=== PATIENT | male | born 1980 | race Caucasian/White ===

== ENCOUNTER 2021-05-07 09:46 | Emergency (ER) | payer MEDICAID, SELFPAY ==
[2021-05-07 09:52] VITALS: BP 173/102; PULSE 84; RESP 20; TEMP 36.9; O2SAT 94; BMI 57.4
--- NOTE | 2021-05-07 10:23 | ED.GENADULT ---
HPI - General Adult General Chief complaint: General Medical Stated complaint: R SIDE LOWER ABD PAIN WHEN COUGH Time Seen by Provider: 05/07/21 10:03 Source: patient Mode of arrival: ambulatory Limitations: no limitations History of Present Illness HPI narrative: 40-year-old male is here today for complaining of right lower quadrant pain. Patient reports that his pain is there when he coughs. He reports that the pain is stabbing. Patient denies pain at any other time. Patient reports that he is coughing because he is a smoker. Patient denies any nausea, vomiting, dyspepsia, dysphagia or odynophagia. Denies any diarrhea or constipation. Denies any fever or chills. Patient denies any other symptoms no CP, PND, SOB with or without exertion. Onset (ago): day(s) Location: abdomen Radiation: non-radiation Severity: mild Quality: stabbing Pain Consistency: intermittent Related Data Previous Rx's Medication Instructions Recorded cyclobenzaprine 10 mg tablet 10 mg PO BEDTIME PRN #10 tab 05/07/21 Allergies Allergy/AdvReac Type Severity Reaction Status Date / Time No Known Allergies [NKA] Allergy Unverified 05/18/20 14:59 Review of Systems Review of Systems: Constitutional : No Weight loss, No Fever, No Chills, No Night Sweats, No Fatigue, No Malaise ENT/Mouth : No Hearing loss, No Ear Pain, No Nasal Congestion, No Sinus Pain, No Hoarseness, No sore throat, No Rhinorrhea, No Swallowing Difficulty Eyes: No Eye Pain, No Swelling, No Redness, No Foreign Body, No Discharge, No Vision Changes Cardiovascular : No Chest Pain, No SOB, No Dyspnea on Exertion, No Orthopnea, No Edema, No Palpitations Respiratory : No Cough, No Sputum, No Wheezing, No Smoke Exposure, No Dyspnea Gastrointestinal : No Nausea, No Vomiting, No Diarrhea, No Constipation, abdominal Pain RLQ, No Hematochezia, No Melena Genitourinary : no irregular bleeding, No Dysuria, No Urinary Frequency, No Hematuria, No Urinary Incontinence, No Urgency, No Flank Pain, No Urinary Flow Changes, No Hesitancy Musculoskeletal : No joint pain, No Myalgias, No Joint Swelling Skin : No Skin Lesions, No rash Neuro : No Weakness, No Numbness, No Paresthesias, No Loss of Consciousness, No Dizziness, No Headache Psych : No Anxiety/Panic, No Depression, No SI/HI/AH/VH, No Social Issues, Heme/Lymph: No Bruising, No Bleeding,No Lymphadenopathy Endocrine : No Polyuria, No Polydipsia, No Temperature Intolerance Yes all other systems are reviewed and are negative PMFSH Past Medical History Medical History (Updated 05/07/21 @ 13:42 by Marcelina Morrow, [facility]) Diabetes HTN (hypertension) Social History Social History Patient Tobacco Use Status: Never used Tobacco Advance Directives: No Advance Directives Information Provided: No Physical Exam Vital Signs: Vital Signs: Last Vital Signs Temp 98.5 F 05/07/21 09:52 Pulse 81 05/07/21 11:38 Resp 20 05/07/21 09:52 BP 183/114 H 05/07/21 11:38 Pulse Ox 95 05/07/21 11:38 Body Mass Index 57.4 Const: General: healthy appearing, no acute distress and well developed Nutritional Appearance: well nourished Orientation/consciousness: patient oriented x3 HENMT: Head: Yes normal to inspection, Yes normocephalic and Yes atraumatic Ears: hearing grossly normal bilaterally General nose exam: Normal external nose present Neck: Neck: Yes normal visual inspection, Yes full ROM and Yes trachea midline Thyroid: Thyroid normal Resp: Auscultation: clear to auscultation bilaterally Cardio: Rate: regular rate Rhythm: regular rhythm GI: Inspection: Yes normal to inspection, No distended and Yes obesity Palpation (GI): Soft to palpation, not firm, nontender, no guarding and No hepatosplenomegaly present Auscultation: normal bowel sounds Skin: General skin exam: elasticity normal, turgor normal and dry skin Neuro: General: patient oriented x3 Course Course Course Narrative: 40 years old male is here today for complaining of right abdominal pain. Patient reports that he only has pain when he coughs. Patient does have any respiratory symptoms he says he smokes cigarettes and occasionally when he coughs he the pain. Patient denies any bloating, diarrhea or constipation. Denies any other GI concerning symptoms. Patient denies any history of hernias or any surgical procedures. Patient does report that he was told that he is prediabetic. Will do blood work, CBC, CMP a urinalysis. If all negative will send patient home with follow-up with PCP and following up with Gastroenterology for IBS Reevaluation(s) Reevaluation #1: Labs back no leukocytosis, mild anemia. Patient denies any hematochezia, melena unintentional weight loss or ribbon like stools. Liver and kidney functions are normal. Blood sugar 228. Urinalysis negative for nitrate or bacteria. Will send patient home to follow-up with PCP. Will send patient also to see Gastroenterology for questioning IBS. Most likely patient's symptoms are related to muscle strain. Patient was encouraged to return if his symptoms will get worse or if you will experience any additional concerning symptoms. He is agreeable to plan of care and verbalizes understanding of instructions. He was given the opportunity to ask questions and all questions answered. Medical Decision Making Lab Data Result diagrams: 05/07/21 10:59 05/07/21 10:59 Labs: Lab Results 05/07/21 05/07/21 05/07/21 Range/Units 10:59 10:59 10:59 WBC 8.9 (4.8-10.8) X10*3/uL RBC 4.83 (4.60-5.80) X10*6/uL Hgb 13.2 L (14.0-18.0) g/dl Hct 40.9 L (42-52) % MCV 84.7 (80-98) fL MCH 27.3 (27.0-33.0) pg MCHC 32.3 (31.0-36.0) g/dl RDW 15.6 (11.0-16.0) % Plt Count 191 (160-400) X10*3/uL MPV 11.6 (9.4-12.4) fL Immature Gran % (Auto) 1.5 H (0.0-0.4) % Neut % (Auto) 70.3 (45-73) % Lymph % (Auto) 19.2 L (20-40) % Carroll % (Auto) 4.9 (2-11) % Eos % (Auto) 3.5 (0-4) % Baso % (Auto) 0.6 (0-2) % Lymph # (Auto) 1.7 (1.2-4.9) X10*3/uL Carroll # (Auto) 0.4 (0.1-1.2) X10*3/uL Eos # (Auto) 0.3 (0.0-0.4) X10*3/uL Baso # (Auto) 0.1 (0.0-0.2) X10*3/uL Abs Immat Gran (auto) 0.13 H (0.00-0.03) X10*3/uL Absolute Neuts (auto) 6.3 (2.0-8.3) X10*3/uL Absolute Nucleated RBC 0.000 (0.0-0.012) X10*3/uL Nucleated RBC % (auto) 0.0 (0.0-0.2) /100WBC Sodium 138 (135-145) mmol/L Potassium 4.1 (3.3-5.1) mmol/L Chloride 106 (96-108) mmol/L Carbon Dioxide 23 (22-29) mmol/L Anion Gap 13 (12-20) BUN 20 H (9-16) mg/dL Creatinine 1.77 H (0.5-1.4) mg/dL Estim Creat Clear Calc 91.3 Estimated GFR 43 Random Glucose 228 H (60-115) mg/dL Calcium 8.6 (8.4-10.2) mg/dL Total Bilirubin 0.3 (0.0-1.0) mg/dL AST 32 (5-37) U/L ALT 39 (0-40) U/L Alkaline Phosphatase 73 (39-117) U/L Total Protein 6.4 L (6.5-8.0) g/dL Albumin 3.7 (3.5-5.0) g/dL Lipase 19 (8-78) U/L Urine Color Urine Appearance Urine pH (5.0-8.0) Ur Specific Rodman (1.005-1.025) Urine Protein (NEG-TRACE) MG/DL Urine Glucose (UA) (NEG) MG/DL Urine Ketones (NEG) MG/DL Urine Blood (NEG) Urine Nitrite (NEG) Ur Leukocyte Esterase (NEG) Urine RBC (0) /HPF Urine WBC (0-4) /HPF Ur Squamous Epith Cells /LPF Urine Bacteria COVID-19 (REMEDIOS) (Negative) COVID-19 Clin Com 05/07/21 05/07/21 Range/Units 11:37 13:00 WBC (4.8-10.8) X10*3/uL RBC (4.60-5.80) X10*6/uL Hgb (14.0-18.0) g/dl Hct (42-52) % MCV (80-98) fL MCH (27.0-33.0) pg MCHC (31.0-36.0) g/dl RDW (11.0-16.0) % Plt Count (160-400) X10*3/uL MPV (9.4-12.4) fL Immature Gran % (Auto) (0.0-0.4) % Neut % (Auto) (45-73) % Lymph % (Auto) (20-40) % Carroll % (Auto) (2-11) % Eos % (Auto) (0-4) % Baso % (Auto) (0-2) % Lymph # (Auto) (1.2-4.9) X10*3/uL Carroll # (Auto) (0.1-1.2) X10*3/uL Eos # (Auto) (0.0-0.4) X10*3/uL Baso # (Auto) (0.0-0.2) X10*3/uL Abs Immat Gran (auto) (0.00-0.03) X10*3/uL Absolute Neuts (auto) (2.0-8.3) X10*3/uL Absolute Nucleated RBC (0.0-0.012) X10*3/uL Nucleated RBC % (auto) (0.0-0.2) /100WBC Sodium (135-145) mmol/L Potassium (3.3-5.1) mmol/L Chloride (96-108) mmol/L Carbon Dioxide (22-29) mmol/L Anion Gap (12-20) BUN (9-16) mg/dL Creatinine (0.5-1.4) mg/dL Estim Creat Clear Calc Estimated GFR Random Glucose (60-115) mg/dL Calcium (8.4-10.2) mg/dL Total Bilirubin (0.0-1.0) mg/dL AST (5-37) U/L ALT (0-40) U/L Alkaline Phosphatase (39-117) U/L Total Protein (6.5-8.0) g/dL Albumin (3.5-5.0) g/dL Lipase (8-78) U/L Urine Color YELLOW Urine Appearance CLEAR Urine pH 5.5 (5.0-8.0) Ur Specific Rodman 1.025 (1.005-1.025) Urine Protein 2+ H (NEG-TRACE) MG/DL Urine Glucose (UA) NEG (NEG) MG/DL Urine Ketones NEG (NEG) MG/DL Urine Blood NEG (NEG) Urine Nitrite NEG (NEG) Ur Leukocyte Esterase NEG (NEG) Urine RBC 0 (0) /HPF Urine WBC 0 (0-4) /HPF Ur Squamous Epith Cells 1+ /LPF Urine Bacteria Not Reportable COVID-19 (REMEDIOS) Negative (Negative) COVID-19 Clin Com See Note Discharge Plan Discharge Clinical Impression: Muscle strain Patient Disposition: Home, Self-Care Instructions: Muscle Strain (ED) Additional Instructions: You were seen here today for right lower abdominal pain. Your abdominal pain most likely is related to muscle strain. However please follow-up with your primary care doctor in 2-3 days. I will also send you to gastroenterology for further workup. Your blood sugar was elevated today please make sure you follow-up with primary care provider to see if you need further workup or medication to control your diabetes. Prescriptions: New cyclobenzaprine 10 mg tablet 10 mg PO BEDTIME PRN (Reason: muscle spasm) Qty: 10 RF: 0 Referrals: Yasmeen Clayton MD [Physician] - 2 days (IBS)
[2021-05-07 11:08] LABS: Basophils Absolute Auto 0.1 X10*3/uL (0.0-0.2); Basophils Percent Auto 0.6 % (0-2); Eosinophils Absolute Auto 0.3 X10*3/uL (0.0-0.4); Eosinophils Percent Auto 3.5 % (0-4); Hematocrit 40.9 % (42-52); Hemoglobin 13.2 g/dl (14.0-18.0); Imm Gran Abs Auto 0.13 X10*3/uL (0.00-0.03); Imm Gran Pct Auto 1.5 % (0.0-0.4); Lymphocytes Absolute Auto 1.7 X10*3/uL (1.2-4.9); Lymphocytes Percent Auto 19.2 % (20-40); MANUAL DIFF FLAG NO; Mean Corpuscular HGB Conc 32.3 g/dl (31.0-36.0); Mean Corpuscular Hemoglobin 27.3 pg (27.0-33.0); Mean Corpuscular Volume 84.7 fL (80-98); Mean Platelet Volume 11.6 fL (9.4-12.4); Monocytes Absolute Auto 0.4 X10*3/uL (0.1-1.2); Monocytes Percent Auto 4.9 % (2-11); Neutrophils Absolute Auto 6.3 X10*3/uL (2.0-8.3); Neutrophils Percent Auto 70.3 % (45-73); Platelet Count 191 X10*3/uL (160-400); Red Blood Count 4.83 X10*6/uL (4.60-5.80); Red Cell Distribution Width 15.6 % (11.0-16.0); White Blood Count 8.9 X10*3/uL (4.8-10.8)
[2021-05-07 11:22] LABS: Lipase 19 U/L (8-78)
[2021-05-07 11:23] LABS: Alanine Aminotransferase 39 U/L (0-40); Albumin Level 3.7 g/dL (3.5-5.0); Alkaline Phosphatase 73 U/L (39-117); Anion Gap 13 (12-20); Aspartate Amino Transferase 32 U/L (5-37); Bilirubin Total 0.3 mg/dL (0.0-1.0); Blood Urea Nitrogen 20 mg/dL (9-16); Calcium 8.6 mg/dL (8.4-10.2); Carbon Dioxide 23 mmol/L (22-29); Chloride 106 mmol/L (96-108); Creatinine Clr Calc Pharmacy 91.3; Estimated Glomerular Filt Rate 43; Glucose Random 228 mg/dL (60-115); Potassium 4.1 mmol/L (3.3-5.1); Sodium 138 mmol/L (135-145); Total Protein 6.4 g/dL (6.5-8.0)
[2021-05-07 11:38] VITALS: BP 183/114; PULSE 81; O2SAT 95
[2021-05-07 12:04] LABS: IDNOW Serial# 55D5AD1C
[2021-05-07 12:05] LABS: COVID-19 Test Negative (Negative)
[2021-05-07 13:07] LABS: Glucose Urine UA NEG (NEG); Leukocyte Esterase Urine NEG (NEG); Nitrite Urine NEG (NEG); PH 5.5 (5.0-8.0); Specific Gravity - Urine 1.025 (1.005-1.025); UACC Culture Trigger NO; Urine Blood NEG (NEG); Urine Ketones NEG (NEG); Urine Protein 2+ MG/DL (NEG-TRACE)
[2021-05-07 13:09] LABS: Appearance Urine CLEAR; Color Urine YELLOW
[2021-05-07 13:33] LABS: RBC Urine 0 /HPF (0); Squamous Epithelial Cell Urine 1+ /LPF; WBC Urine 0 /HPF (0-4)
== END 2021-05-07 14:46 | disposition home or self-care (01) ==
PROVIDERS: Nurse Practitioner Family; Emergency Provider Emergency Medicine
DX: S39.011A Strain of muscle, fascia and tendon of abdomen, initial encounter (principal); X50.3XXA Overexertion from repetitive movements, initial encounter; R10.31 Right lower quadrant pain; F17.210 Nicotine dependence, cigarettes, uncomplicated; J41.0 Simple chronic bronchitis; E11.9 Type 2 diabetes mellitus without complications; I10 Essential (primary) hypertension; Z20.822 Contact with and (suspected) exposure to COVID-19; Y93.89 Activity, other specified; Y92.019 Unspecified place in single-family (private) house as the place of occurrence of the external cause; Y99.9 Unspecified external cause status
CPT/HCPCS: 36415; 80053; 81001; 83690; 85025; 87635; 99283; 99284

== ENCOUNTER 2023-03-23 02:41 | Emergency (ER) | payer MEDICAID, SELFPAY ==
[2023-03-23 02:48] VITALS: PULSE 74; RESP 20; TEMP 36.5; O2SAT 96; BMI 45.5
[2023-03-23 02:59] VITALS: BP 122/79; PULSE 78; RESP 18; TEMP 36.7; O2SAT 96
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
[2023-03-23] MEDS: diphenhydrAMINE HCL 25 MG CAPSULE 50 MG PO (03:56)
--- NOTE | 2023-03-23 03:58 | ED.EYEPROB ---
HPI - Eye Problem General Chief complaint: Eye Problems Stated complaint: Eyes burning Time Seen by Provider: 03/23/23 03:38 Source: patient and old records reviewed Mode of arrival: ambulatory Limitations: no limitations History of Present Illness HPI Narrative: Apparently patient was smoking weed with his friend in the car and suddenly noticed redness of the eyes denies any other chemical use no direct injury both eyes are watering Related Data Previous Rx's Medication Instructions Recorded cyclobenzaprine 10 mg tablet 10 mg PO BEDTIME PRN pain #10 tabs 05/08/21 diphenhydramine HCl 25 mg capsule 25 mg PO TID PRN allergic reaction 03/23/23 (Benadryl) #20 caps ketotifen fumarate 0.025 % (0.035 1 drp ophthalmic (eye) Q8H PRN 03/23/23 %) eye drops (Alaway) allergy symptoms #5 mL Allergies Allergy/AdvReac Type Severity Reaction Status Date / Time No Known Allergies [NKA] Allergy Unverified 05/18/20 14:59 Review of Systems Review of Systems: Yes all other systems are reviewed and are negative PMFSH Past Medical History Medical History Cellulitis and abscess of buttock Contusion of unspecified site Dermatophytosis Diabetes HTN (hypertension) Morbidly obese Myalgia and myositis, unspecified Pain in limb Social History Social History Patient Tobacco Use Status: Never used Tobacco Advance Directives: No Advance Directives Information Provided: Yes Physical Exam Vital Signs: Vital Signs: Last Vital Signs Temp 98.0 F 03/23/23 02:59 Pulse 78 03/23/23 02:59 Resp 18 03/23/23 02:59 BP 122/79 03/23/23 02:59 Pulse Ox 96 03/23/23 02:59 O2 Del Method Room Air 03/23/23 02:59 BMI result Body Mass Index 45.5 Eyes: Visual Mcdonald: normal visual mcdonald by confrontation Alignment and Position: alignment normal Periorbital: periorbital findings normal and periorbital findings abnormal Eyelids: Yes eyelid abnormality (Swollen bilateral eyelids) Conjunctivae: conjunctival abnormal (Inflamed conjunctiva with watery discharge) bilateral Sclerae: sclerae normal Corneas: corneas normal Pupils: Equal, round and reactive pupils present Direct Ophthalmoscopy: normal light reflex and anterior chamber normal Neuro: Cranial nerves: Yes Equal, round and reactive pupils present Medications Administered Discontinued Medications Generic Name Dose Route Start Last Admin Trade Name Freq PRN Reason Stop Dose Admin Diphenhydramine HCl 50 mg 03/23/23 03:45 03/23/23 03:56 Diphenhydramine Hcl 25 Mg Capsule PO 03/23/23 03:46 50 mg ONCE ONE Administration Medical Decision Making Medical Decision Making [facility] Narrative: Patient has allergic conjunctivitis likely from fume, discharge patient on Benadryl and eyedrops Discharge Plan Discharge Clinical Impression: Acute allergic conjunctivitis Patient Disposition: Home, Self-Care Instructions: Conjunctivitis (ED) Additional Instructions: you have conjunctivitis from allergic reaction to fumes/chemical Use eyedrops as prescribed Benadryl for itching Prescriptions: New ketotifen fumarate [Alaway] 0.025 % (0.035 %) drops 1 drp ophthalmic (eye) Q8H PRN (Reason: allergy symptoms) Qty: 5 0RF Rx Instructions: do not exceed 2 doses in a 24 hour period diphenhydramine HCl [Benadryl] 25 mg capsule 25 mg PO TID PRN (Reason: allergic reaction) Qty: 20 0RF No Action cyclobenzaprine 10 mg tablet 10 mg PO BEDTIME PRN (Reason: pain) Qty: 10 0RF
== END 2023-03-23 04:11 | disposition home or self-care (01) ==
PROVIDERS: Emergency Provider Internal Medicine
DX: H10.13 Acute atopic conjunctivitis, bilateral (principal); F12.90 Cannabis use, unspecified, uncomplicated; E11.9 Type 2 diabetes mellitus without complications
CPT/HCPCS: 99283

== ENCOUNTER 2023-11-06 14:08 | Outpatient (REF) | payer MEDICAID, SELFPAY ==
[2023-11-06 17:26] LABS: MANUAL DIFF FLAG NO
[2023-11-06 17:38] LABS: Basophils Absolute Auto 0.1 X10*3/uL (0.0-0.2); Basophils Percent Auto 0.7 % (0-2); Eosinophils Absolute Auto 0.2 X10*3/uL (0.0-0.4); Eosinophils Percent Auto 2.1 % (0-4); Hematocrit 46.8 % (42.0-52.0); Imm Gran Abs Auto 0.05 X10*3/uL (0.00-0.03); Imm Gran Pct Auto 0.5 % (0.0-0.4); Lymphocytes Absolute Auto 1.6 X10*3/uL (1.2-4.9); Lymphocytes Percent Auto 17.2 % (20-40); Mean Corpuscular HGB Conc 32.1 g/dl (31.0-36.0); Mean Corpuscular Hemoglobin 27.4 pg (27.0-33.0); Mean Corpuscular Volume 85.4 fL (80.0-98.0); Mean Platelet Volume 12.6 fL (9.4-12.4); Monocytes Absolute Auto 0.4 X10*3/uL (0.1-1.2); Monocytes Percent Auto 4.2 % (2-11); Neutrophils Absolute Auto 7.2 x10*3/uL (2.0-8.3); Neutrophils Percent Auto 75.3 % (45-73); Platelet Count 222 X10*3/uL (160-400); Red Blood Count 5.48 X10*6/uL (4.60-5.80); Red Cell Distribution Width 14.6 % (11.0-16.0); White Blood Count 9.6 X10*3/uL (4.8-10.8)
[2023-11-06 17:51] LABS: Estimated Average Glucose 126 mg/dL
[2023-11-06 18:53] LABS: Alanine Aminotransferase 21 U/L (0-40); Albumin Level 4.2 g/dL (3.5-5.0); Alkaline Phosphatase 91 U/L (39-117); Aspartate Amino Transferase 19 U/L (5-37); Bilirubin Total 0.4 mg/dL (0.0-1.0); Blood Urea Nitrogen 18 mg/dL (9-16); Calcium 8.9 mg/dL (8.4-10.2); Carbon Dioxide 23 mmol/L (22-29); Chloride 108 mmol/L (96-108); Cholesterol 137 mg/dL (<200); Glucose Random 125 mg/dL (60-115); HDL Cholesterol 31 mg/dL (>40); LDL Cholesterol Calculated 88 mg/dL (<100); Magnesium 2.1 mg/dL (1.6-2.6); Potassium 3.5 mmol/L (3.3-5.1); Sodium 138 mmol/L (135-145); TSH reflex Free T4 0.43 uIU/mL (0.32-4.0); Total Protein 7.6 g/dL (6.5-8.0); Triglycerides 91 mg/dL (<150)
[2023-11-06 19:12] LABS: Anion Gap 15 (12-20); Estimated Glomerular Filt Rate 58
== END 2023-11-06 14:09 | disposition home or self-care (01) ==
LOC: HO.CHCLDS 14:08
PROVIDERS: Visit Provider Family Medicine
DX: I10 Essential (primary) hypertension (principal); E11.69 Type 2 diabetes mellitus with other specified complication; E66.01 Morbid (severe) obesity due to excess calories
CPT/HCPCS: 36415; 80053; 80061; 83036; 83735; 84443; 85025

== ENCOUNTER 2024-09-07 00:59 | Emergency (ER) | payer OTHER, SELFPAY ==
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
[2024-09-07 01:09] VITALS: BP 163/94; PULSE 77; RESP 16; TEMP 36.6; O2SAT 93; BMI 44.5
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
[2024-09-07 05:11] VITALS: BP 152/89; PULSE 69; RESP 18; TEMP 36.7; O2SAT 98
[2024-09-07] MEDS: Ibuprofen 600 MG TABLET PO (05:21)
[2024-09-07 05:26] VITALS: BP 152/89; PULSE 69; RESP 18; TEMP 36.7; O2SAT 98
== END 2024-09-07 05:28 | disposition home or self-care (01) ==
PROVIDERS: Emergency Provider Internal Medicine
DX: M25.561 Pain in right knee (principal); M79.642 Pain in left hand; M54.50 Low back pain, unspecified
CPT/HCPCS: 72100; 73130; 73564; 99283; 99284

== ENCOUNTER → 2024-09-07 01:30 | Outpatient (BNV) | payer OTHER, SELFPAY | PROVIDERS: Visit Provider General Practice | DX: S80.911A Unspecified superficial injury of right knee, initial encounter (principal); M54.50 Low back pain, unspecified; M79.642 Pain in left hand; V89.2XXA Person injured in unspecified motor-vehicle accident, traffic, initial encounter | CPT/HCPCS: 72100; 73130; 73564 ==

== ENCOUNTER 2025-04-29 09:47 | Outpatient (REF) | payer OTHER, SELFPAY ==
--- OUTSIDE RECORDS SUMMARY | 2025-04-29 08:45 | XMS_ITS | Encounter Summary ---
Author Organization [employer] Address [address] 7[address] [place] [address] Care Team Providers Care Economic Development Director Name Role Phone Starla Zhao Primary Care Provider [phone] Encounter Details Date Type Department Care Team ([facility] Contact Info) Description 04/29/2025 8:45 AM EDT Office Visit [facility] [address] [place], [place] [phone] Starla Zhao FNP [address] [place], [place] [phone] Primary hypertension (Primary Dx); Type 2 diabetes mellitus with other specified complication, unspecified whether senior living insulin use ([facility]); Healthcare maintenance; Encounter for immunization Social History Tobacco Use Types Packs/Day Years Used Date Smoking Tobacco: Never Passive Smoke Exposure: Never Smokeless Tobacco: Never Alcohol Use Standard Drinks/Week Comments Never 0 (1 standard drink = 0.6 oz pur e alcohol) Depression Answer Date Recorded Patient Health Questionnaire-9 Score 2 04/29/2025 Patient Health Questionnaire-9 Score 2 04/29/2025 Last PHQ-9: Questionnaire Data Not on file 0 04/29/2025 Housing Stability Answer Date Recorded What is your housing situation today? I have christian last 04/22/[address] you li ve. Do you have problems with any of the following? None of the above 04/22/2025 Food Insecurity Answer Date Recorded Within the past 12 months, y ou worried that your food would run out before you got money to buy more: Never True 04/22/2025 Within the past 12 months,th e food you bought just didn't last and you didn't have enough money to get more: Never True Transportation Answer Date Recorded In the past 12 months, has l ack of transportation kept you from medical appts, meetings, work or from getting things needed for daily living? No 04/22/2025 Utilities Answer Date Recorded In the past 12 months, has t he electric, gas, oil or water company threatened to shut off services in your home? No 04/22/2025 Depression Answer Date Recorded Patient Health Questionnaire-2 Score 1 04/29/2025 Internet Access Answer Date Recorded Internet Access Q1 Yes 04/22/2025 Internet Access Q2 Not on file 04/22/2025 Sex and Gender Information Value Date Recorded Sex Assigned at Male 07/01/2022 10:18 AM EDT Legal Sex Male 10:18 AM EDT Gender Identity Male 07/01/2022 10:18 AM EDT Sexual Orientation Straight 07/01/2022 10 :18 AM EDT documented as of this encounter Last Filed Vital Signs Vital Sign Reading Time Taken Comments Blood Pressure 199/103 04/29/2025 9:13 AM EDT Pulse 63 04/29/2025 9:13 AM EDT Temperature 36.6 C (97.9 F) 04/29/2025 9:13 AM EDT Respiratory Rate 21 04/29/2025 9:13 AM EDT Oxygen Saturation 96% 04/29/2025 9:13 AM EDT Inhaled Oxygen Concentration - - Weight 139 kg (306 lb 4 oz) 04/29/2025 9:13 AM E DT Height 177.8 cm (5' 10 ) 04/29/2025 9:13 AM EDT Body Mass Index 43.94 04/29/2025 9:13 AM EDT documented in this encounter Functional Status * Over the past 2 weeks, how often have you been bothered by any of the following problems? Question Answer Date of Assessment Author Patient Health Questionnaire -2 Score 1 04/29/2025 9:15 AM EDT Annie Ha MA * Little interest or pleasure in doing things Answer Date of Assessment Author Not at all 04/29/2025 9:15 AM EDT Theodore Ha MA * Feeling down, depressed, or hopeless Answer Date of Assessment Author Several days 04/29/2025 9:15 AM EDT Theodore Ha MA * Trouble falling or staying asleep, or sleeping too much Answer Date of Assessment Author Not at all 04/29/2025 9:15 AM Theodore Carlos MA * Feeling tired or having little energy Answer Date of Assessment Author Several days 04/29/2025 9:15 AM Theodore Carlos MA * Poor appetite or overeating Answer Date of Assessment Author Not at all 04/29/2025 9:15 AM Theodore Carlos MA * Feeling bad about yourself - or that you are a failure or have let yourself or your family down Answer Date of Assessment Author Not at all 04/29/2025 9:15 AM Theodore Carlos MA * Trouble concentrating on things, such as reading the newspaper or watching television Answer Date of Assessment Author Not at all 04/29/2025 9:15 AM Theodore Carlos MA * Moving or speaking so slowly that other people could have noticed? Or the opposite - being so fidgety or restless that you have been moving around a lot more than usual. Answer Date of Assessment Author Not at all 04/29/2025 9:15 AM Theodore Carlos MA * Thoughts that you would be better off or hurting yourself in some way Answer Date of Assessment Author Not at all 04/29/2025 9:15 AM Theodore Carlos MA * Patient Health Questionnaire-9 Score Answer Date of Assessment Author 2 04/29/2025 9:15 AM Theodore Carlos MA * How difficult have these problems made it for you to do your work, take care of things at home, or get along with other people? Answer Date of Assessment Author Not difficult at all 04/29/2025 9:15 AM Annie Rubi MA * Over the last 2 weeks, how often have you been bothered by any of the following problems? Question Answer Date of Assessment Author Feeling nervous, anxious, or on edge 0 04/29/2025 9:15 AM Annie Carlos MA Not being able to stop or co ntrol worrying 0 04/29/2025 9:15 AM EDT Annie Ha MA Worrying too much about diff erent things 0 04/29/2025 9:15 AM EDT Annie Ha MA Trouble relaxing 0 04/29/2025 9:15 AM EDT Annie Khan MA Being so restless that it is hard to sit still 0 04/29/2025 9:15 AM EDT Annie Ha MA Becoming easily annoyed or irritable 0 04/29/2025 9:15 AM EDT Annie Ha MA Feeling afraid as if somethi ng awful might happen 0 04/29/2025 9:15 AM EDT Annie Ha MA OCTAVIO-7 Total Score 0 04/29/2025 9:15 AM EDT Annie Ha MA documented as of this encounter Plan of Treatment Upcoming Encounters Date Type Department Care Team (Late st Contact Info) Description 05/30/2025 9:30 AM EDT Clinical Support [facility]S [address] [place] [address] Scheduled Orders Name Type Priority Associated Diagnoses Orde r Schedule Albumin, Random Urine W/Creatinine Lab Routine Type 2 diabetes mellitus with other specified complication, unspecified whether medical terminologist insulin use ([facility]) Expected: 04/29/2025 (Approximate), Expires: 04/29/2026 Lipid Panel, Standard Lab Routine Type 2 diabetes mellitus with other specified complication, unspecified whether senior living insulin use ([facility]) Expected: 04/29/2025 (Approximate), Expires: 04/29/2026 Hemoglobin A1c Lab Routine Type 2 diabetes mellitus with other specified complication, unspecified whether senior living insulin use (CMS/HCC) Expected: 04/29/2025 (Approximate), Expires: 04/29/2026 TSH with Reflex to Free T4 Lab Routine Type 2 diabetes mellitus with other specified complication, unspecified whether medical terminologist insulin use (CMS/HCC) Expected: 04/29/2025 (Approximate), Expires: 04/29/2026 Comprehensive Metabolic Panel Lab Routine Type 2 diabetes mellitus with other specified complication, unspecified whether senior living insulin use (CMS/HCC) Expected: 04/29/2025 (Approximate), Expires: 04/29/2026 CBC auto differential Lab Routine Type 2 diabetes mellitus with other specified complication, unspecified whether senior living insulin use ([facility]) Expected: 04/29/2025, Expires: 04/29/2026 Chlamydia/N. Gonorrhoeae RNA, TMA, Urogenitial Microbiology Routine Type 2 diabetes mellitus with other specified complication, unspecified whether medical terminologist insulin use ([facility]) Expected: 04/29/2025, Expires: 04/29/2026 Hepatitis C Viral RNA, Quantitative, Real-Time PCR Lab Routine Type 2 diabetes mellitus with other specified complication, unspecified whether medical terminologist insulin use ([facility]) Expected: 04/29/2025 (Approximate), Expires: 04/29/2026 RPR (Monitor) with Reflex to Titer Lab Routine Type 2 diabetes mellitus with other specified complication, unspecified whether medical terminologist insulin use ([facility]) Expected: 04/29/2025 (Approximate), Expires: 04/29/2026 HIV-1/2 Antigen and Antibodies, Fourth Generation, with Reflexes Lab Routine Type 2 diabetes mellitus with other specified complication, unspecified whether senior living insulin use ([facility]) Expected: 04/29/2025 (Approximate), Expires: 04/29/2026 documented as of this encounter Procedures Procedure Name Priority Date/Time Associated Diagnosis Comments POCT GLYCATED HEMOGLOBIN, TOTAL Routine 04/29/2025 9:18 AM EDT Type 2 diabetes mellitus with other specified complication, unspecified whether medical terminologist insulin use ([facility]) POCT GLUCOSE Routine 04/29/2025 9:17 AM EDT Type 2 diabetes mellitus with other specified complication, unspecified whether senior living insulin use ([facility]) documented in this encounter Results * (ABNORMAL) POCT HGB A1C (04/29/2025 9:18 AM EDT) [facility] Hemoglobin A1C 7.0(A) 4.0 - 5.7 % QC Media Lot # [id number] Lot# Expiration Date ,90 Blood 04/29/2025 9:18 AM EDT Starla HOOK POINT OF CARE TEST ENTER/EDIT ORDERABLES Final Result * POCT Glucose (04/29/2025 9:17 AM EDT) Glucose Blood, POC 192 60 - 200 mg/dL QC Media Lot # [id number] Lot# Expiration Date Blood Capillary blood specimen / Unknown 04/29/2025 9:17 AM EDT Starla HOOK POINT OF CARE TEST ENTER/EDIT ORDERABLES Final Result documented in this encounter Visit Diagnoses Diagnosis Primary hypertension- Primary Unspecified essential hypertension Type 2 diabetes mellitus with other specified complication, unspecified whether medical terminologist insulin use ([facility]) Healthcare maintenance Encounter for immunization documented in this encounter Additional Health Concerns Assessment Noted Time PHQ-9 Depression Total Score: 2 04/29/20 25 9:15 AM EDT documented as of this encounter Care Teams Economic Development Director Relationship Specialty Start Date End Date Starla Zhao FNP [address] [place] [phone] PCP - General Family Medicine 01/23/22 documented as of this encounter
--- OUTSIDE RECORDS SUMMARY | 2025-04-29 10:34 | XMS_ITS | Encounter Summary ---
Author Organization [employer] Address [address] [place] [address] 7 [place] [address] Care Team Providers Care Direct Sales Consultant Name Role Phone Starla Zhao Primary Care Provider [phone] Reason for Visit * Reason Comments Med Refill Encounter Details Date Type Department Care Team (Late st Contact Info) Description 10/05/2023 Refill [facility] MED[facility] [address] [place] [address] Starla Zhao FNP [address] [place] [address] Primary hypertension Social History Tobacco Use Types Packs/Day Years Used Date Smoking Tobacco: Never Assessed Sex and Gender Information Value Date Recorded Sex Assigned at Male 07/01/2022 10:18 AM EDT Legal Sex Male 10:18 AM EDT Gender Identity Male 07/01/2022 10:18 AM EDT Sexual Orientation Straight 07/01/2022 10 :18 AM EDT documented as of this encounter Plan of Treatment Upcoming Encounters Date Type Department Care Team (Late st Contact Info) Description 05/30/2025 9:30 AM EDT Clinical Support [facility] [address] [place] [address] documented as of this encounter Visit Diagnoses Diagnosis Primary hypertension Unspecified essential hypertension documented in this encounter Care Teams Direct Sales Consultant Relationship Specialty Start Date End Date Starla Zhao FNP [address] [place] [address] PCP - General Family Medicine 01/23/22 documented as of this encounter
--- OUTSIDE RECORDS SUMMARY | 2025-04-29 10:34 | XMS_ITS | Encounter Summary ---
Author Organization [employer] Address [address] [facility] [address] [place] [address] Care Team Providers Care Print Machine Operator Name Role Phone Starla Zhao Primary Care Provider [phone] Reason for Visit * Reason Onset Date Comments Chart Prep 04/28/2025 Encounter Details Date Type Department Care Team ([facility] Contact Info) Description 04/28/2025 Telephone [facility] [address] [place], [place] [phone] Starla Zhao FNP [address] [place] [address] Chart Prep Social History Tobacco Use Types Packs/Day Years [...] AM EDT documented as of this encounter Miscellaneous Notes * Telephone Encounter - Annie aH MA - 04/28/2025 2:13 PM EDT Chart Prep Labs: done Images: not applicable Referrals: [facility] Vision pt stated his good for now that he don't need the appt. Pt refused appt Vaccines due: Hep B and HPV Screenings: eye exam and foot exam Overdue care gaps: A1c, Glucose, SBIRT, PHQ-9, OCTAVIO-7, and Disability screen documented in this encounter Plan of Treatment Upcoming Encounters Date Type Department Care Team (Late st Contact Info) Description 05/30/2025 9:30 AM EDT Clinical Support [facility] [address] [place] [address] documented as of this encounter Visit Diagnoses Not on filedocumented in this encounter Additional Health Concerns Assessment Noted Time PHQ-9 Depression Total Score: 4 12/03/19 24 10:17 AM EDT documented as of this encounter Care Teams Print Machine Operator Relationship Specialty Start Date End Date Stalra Zhao FNP [address] [place] [address] PCP - General Family Medicine 01/23/22 documented as of this encounter
--- OUTSIDE RECORDS SUMMARY | 2025-04-29 10:34 | XMS_ITS | Encounter Summary ---
Author Organization [employer] Address [address] [facility] [address] [place] [address] Care Team Providers Care Tassel Clipper Name Role Phone Starla Zhao MILADYS Primary Care Provider [phone] Encounter Details Date Type Department Care Team (Latest Contact Info) Description 04/29/2025 Travel Social History Tobacco Use Types Packs/Day Years [...] AM EDT documented as of this encounter Functional Status * Over the past 2 weeks, how often have you been bothered by any of the following problems? Question Answer Date of Assessment Author Patient Health Questionnaire -2 Score 1 04/29/2025 9:15 AM JUSTINT Annie Ha MA * Little interest or pleasure in doing things Answer Date of Assessment Author Not at all 04/29/2025 9:15 AM Theodore Carlos MA * Feeling down, depressed, or hopeless Answer Date of Assessment Author Several days 04/29/2025 9:15 AM Theodore Carlos MA * Trouble falling or staying asleep, [...] 9:15 AM EDT Theodore Ha MA * Thoughts that you would be better off or hurting yourself in some way Answer Date of Assessment Author Not at all 04/29/2025 9:15 AM JUSTINT Theodore Ha MA * Patient Health Questionnaire-9 Score Answer Date of Assessment Author 2 04/29/2025 9:15 AM JUSTINT Theodore Ha MA * How difficult have these problems made it for you to do your work, take care of things at home, or get along with other people? Answer Date of Assessment Author Not difficult at all 04/29/2025 9:15 AM EDT Annie Feliz MA * Over the last 2 weeks, how often have you been bothered by any of the following problems? Question Answer Date of Assessment Author Feeling nervous, anxious, or on edge 0 04/29/2025 9:15 AM JUSTINT Annie Ha MA Not being able to stop or co ntrol worrying 0 04/29/2025 9:15 AM JUSTINT Annie Ha MA Worrying too much about diff erent things 0 04/29/2025 9:15 AM JUSTINT Annie Ha MA Trouble relaxing 0 04/29/2025 9:15 AM EDT Annie Khan MA Being so restless that it is hard to sit still 0 04/29/2025 9:15 AM Annie Carlos MA Becoming easily annoyed or irritable 0 04/29/2025 9:15 AM JUSTINT Annie Ha MA Feeling afraid as if somethi ng awful might happen 0 04/29/2025 9:15 AM JUSTINT Annie Ha MA OCTAVIO-7 Total Score 0 04/29/2025 9:15 AM JUSTINT Annie Ha MA documented as of this encounter Plan of Treatment Upcoming Encounters Date Type Department Care Team (Late st Contact Info) Description 05/30/2025 9:30 AM EDT Clinical Support [facility] PED[facility] [address] [place] [address] documented as of this encounter Visit Diagnoses Not on filedocumented in this encounter Additional Health Concerns Assessment Noted Time PHQ-9 Depression Total Score: 2 04/29/20 25 9:15 AM EDT documented as of this encounter Care Teams Tassel Clipper Relationship Specialty Start Date End Date Starla Zhao FNP [address] [place] [phone] PCP - General Family Medicine 01/23/22 documented as of this encounter
--- OUTSIDE RECORDS SUMMARY | 2025-04-29 10:34 | XMS_ITS | Clinical Summary ---
Author Organization [employer] Address [address] [place] [address] Care Team Providers Care Yard Goods Salesperson Name Role Phone Starla Zhao MILADYS Primary Care Provider [phone] Allergies No known active allergies Medications Blood Pressure Monitor kit Please use to check blood pressure once daily and when symptomatic 1 kit 12/10/19 24 Active rosuvastatin (Crestor) 10 MG tablet Take 1 tablet (10 mg) by mouth at bedtime. (Cholesterol) 90 tablet 3 11/19/19 25 Active lisinopril 40 MG tabletIndicatio ns:Primary hypertension TAKE 1 TABLET BY MOUTH EVERY DAY 90 tablet 3 04/29/20 25 Active metoprolol succinate XL (Toprol XL) 50 MG 24 hr tabletIndicatio ns:Primary hypertension Take 1 tablet (50 mg) by mouth Once per day. Do not crush or chew. 90 tablet 3 04/29/20 25 2025 Active amLODIPine (Norvasc) 10 MG tabletIndicatio ns:Primary hypertension Take 1 tablet (10 mg) by mouth in the morning. 90 tablet 3 04/29/20 25 Active amLODIPine (Norvasc) 10 MG tablet TAKE 1 TABLET BY MOUTH EVERY DAY IN THE MORNING 90 tablet 3 04/21/20 24 2024 Discontinued(R eorder (will not trigger notification to Pharmacy)) metoprolol succinate XL (Toprol XL) 50 MG 24 hr tabletIndicatio ns:Primary hypertension Take 1 tablet (50 mg) by mouth Once per day. Do not crush or chew. 90 tablet 1 08/02/20 24 2024 Discontinued(R eorder (will not trigger notification to Pharmacy)) lisinopril 40 MG tabletIndicatio ns:Primary hypertension TAKE 1 TABLET BY MOUTH EVERY DAY 90 tablet 3 03/22/20 25 2024 Discontinued(R eorder (will not trigger notification to Pharmacy)) Active Problems Problem Noted Date Diagnosed Date Dog bite of right ankle 02/01/2025 Assessment & Plan (02/01/2025 2:21 PM EDT): No necessity for rabies vaccine he reports his dog is vaccinated against rabies Tdap vaccine is up-to-date I will prescribe Augmentin 875-125 mg twice daily for 5 days Severe obesity 08/03/2024 Healthcare maintenance 11/20/2023 Overview (04/28/2025): Dental: [facility] dental Colonoscopy: routine screening starting at 45 y/o OPH: referral to [facility] placed 08/23/24 Assessment & Plan (08/03/2024 10:18 AM EST): COVID and Flu vaccines administered today, pt tolerated well. Type 2 diabetes mellitus 02/24/2022 Overview (08/23/2024): Lab Results Component Value Date HGBA1C 6.7 (A) 08/23/2024 HGBA1C 6.0 11/06/2023 HGBA1C 6.2 (A) 10/28/2023 -Previously tx with metformin, although current A1c well controlled w/o medications. Encouraged lifestyle interventions Assessment & Plan (08/23/2024 10:08 AM EST): - Plan: decrease soda consumption. Currently 6 soda/day (orange soda or coca cola). Plan to substitute for water/vitamin drink/Gatorade Assessment & Plan (10/28/2023 5:45 PM EST): Uncontrolled: Glucose levels are not that bad. The patient is not currently taking Metformin and has not been monitoring blood sugar levels. The plan is to hold off on prescribing Metformin until kidney function is assessed. Patient was advised to monitor blood sugar levels at home. Labs: Hemoglobin A1C, Glucose, Hgb A1C Primary hypertension 02/24/2022 Overview (08/23/2024): BP goal: < 130/80 mmHg Medications: Lisinopril 40mg nightly Amlodipine 10mg nightly Metoprolol XL 50mg nightly Maintenance: Lipid Panel: LDL 88, TC 137, HDL 31, TG October Encouraged to cont with lifestyle interventions Assessment & Plan (02/01/2025 2:20 PM EDT): Today blood pressure elevated, patient is clinically asymptomatic I advised low-sodium diet and to take all his medication as soon as he gets home, lisinopril 40, amlodipine 10 mg, and metoprolol 50 mg. I advised patient to take his medication every day without missing any dose ED precautions were reviewed with him Assessment & Plan (08/23/2024 10:08 AM EST): - Home BP readings improved, average at goal - Cont current therapy - Follow up precautions Assessment & Plan (08/03/2024 10:17 AM EST): - Office readings elevated - Plan: inc metoprolol from 25mg to 50mg. Home BP log provided. Encouraged to record home BP readings and f/up in 2-3 weeks for re-check. Assessment & Plan (12/07/2023 11:45 AM EDT): Discussed management with pt, would prefer to monitor home BP readings for a few weeks and review together before further med increases Assessment & Plan (11/20/2023 8:32 PM EDT): BP goal: < 130/80 mmHg Medications: Cont Lisinopril 40mg daily Cont Amlodipine 10mg daily DC Carvedilol 6.25mg BID Start metoprolol XL 25mg daily to assist with med adherence. Reviewed med safety and SE Maintenance: Lipid Panel: LDL 88, TC 137, HDL 31, TG October -Aerobic exercise to reduce BP. Initial goal of 30 min walk 3-5x/week. Increase as tolerated with goal 150 minutes weekly -low-sodium diet (goal: <2g/day) and heart healthy diet such as DASH to reduce BP and ASCVD risk. -Home BP monitoring 2-3 x/week (or more frequently as directed) -Seek immediate medical attention for chest pain, palpitations, SOB, syncope, or sudden changes in mental status. -Do not change or discontinue current prescriptions without first consulting health care provider Assessment & Plan (10/28/2023 5:46 PM EST): Uncontrolled: The patient's blood pressure remains elevated despite being on Lisinopril. Plan to add amlodipine to the regimen and monitor blood pressure. A blood pressure cuff will be provided from the pharmacy in [place]. F/U in 2 weeks to re-check blood pressure. Labs: CBC, Comprehensive Metabolic Panel, Lipid Panel, Magnesium, albumin Future Appointments Date Time Provider Department Center 11/06/2023 1:[address] [facility] NURSE [facility] 11/17/2023 3:30 PM MILADYS Chaves [facility] Resolved Problems Problem Noted Date Diagnosed Date Resolved Date Severe obesity (BMI >= 40) 01/23/2012 1 10/04/2023 Assessment & Plan (10/28/2023 5:47 PM EST): Discussed calorie deficit, recommended reduction of 20-30% of maintenance calories; fall internship referral offered. Recommended to decrease soda and sugary beverage consumption. Recommended at least 20 g per meal of protein to assist with satiety. Recommended at least 150 min/week of moderate intensity exercise. Labs: TSH w/ Reflex to FT4 Encounters Date Type Department Care Team Description 04/29/2025 8:45 AM EDT Office Visit [facility] [address] [place] [address] Starla Zhao FNP Primary hypertension (Primary Dx); Type 2 diabetes mellitus with other specified complication, unspecified whether internal control manager insulin use ([facility]); Healthcare maintenance; Encounter for immunization 04/29/2025 Travel 04/28/2025 Telephone [facility] [address] [place] [address] Starla Zhao FNP Chart Prep 04/22/[address] [facility] [address] [place], [place] [id number] Starla Zhao FNP Pre-visit Planning (SDOH screening negative and Tobacco screening negative) 03/22/[address] [facility] [address] [place] [address] Starla Zhao FNP Primary hypertension 02/03/[address] [facility] [address] [place], [place] [phone] Starla Zhao FNP Chart Prep 02/01/2025 2:40 PM EDT Office Visit [facility] [address] [place] [address] Ny Nielson MD Primary hypertension (Primary Dx); Dog bite of right ankle, initial encounter from Last 3 Months Immunizations Immunization Administration Dates Next Due Hep B, adult 04/29/2025 Influenza, IIV3, injectable 06/03/2008 Influenza, seasonal, injectable, preservative fr ee 08/02/2024 Pfizer Covid-19 Vaccine 12+ 08/02/2024, Pneumococcal Conjugate PCV 20 12/03/2023 Tdap 09/22/2023,02/22/2022 Family History Medical History Relation Name Comments Diabetes Mother Hypertension Mother Cervical cancer Sister Relation Name Status Comments Mother Sister Social History Tobacco Use Types Packs/Day Years [...] Orientation Straight 07/01/2022 10 :18 AM EDT Last Filed Vital Signs Vital Sign Reading [...] Mass Index 43.94 04/29/2025 9:13 AM EDT Plan of Treatment Upcoming Encounters Date Type Department Care Team (Late st Contact Info) Description 05/30/2025 9:30 AM EDT Clinical Support [facility] [address] [place] [address] Health Maintenance Due Date Last Done Comments Diabetes: Foot Exam 1990 Eye Exam 1990 Family Planning (PISQ) 1995 HPV Vaccines (1 - Male 3-dose series) 1995 Diabetes: Urine Protein Screening 02/22/2023 02/22/2022 Lipid Panel 11/05/2024 11/06/2023, 02/22/2022 Dental Oral Exam 12/10/2024 06/10/2024, 01/25/2015 Dental Prophylaxis 12/10/2024 06/10/2024 Influenza Vaccine (#1) 2025 08/02/2024, 2007 Hepatitis B Vaccines (2 of 3 - 19+ 3-dose series) 05/27/2025 04/29/2025 Dental X-Ray: Bitewings 06/11/2025 06/10/2024, 01/25 Diabetes: Hemoglobin A1C 07/30/2025 025, 08/23/2024, 11/06/2023, Additional history exists SDOH Screening 04/22/2026 04/22/2025 Alcohol/Substance Use Screening 04/29/2026 04/29/2025 Depression Screening 04/29/2026 04/29/2025, 04/29/20 25 Disability Screening 04/29/2026 04/29/2025 Tobacco Screening 04/29/2026 04/29/2025 Dental X-Ray: Full Mouth 06/11/2027 024, 01/25/2015, 01/25/2015 Zoster Vaccines (1 of 2) 2030 DTaP/Tdap/Td Vaccines (3 - Td or Tdap) 09/22/2033 09/22/2023, 02/22/2022 RSV Patients and Patients Aged 60 years or older (1 - 1-dose 75+ series) 2055 HIV Screening Completed 02/22/2022 Hepatitis C Screening Completed 02/22/2022 Pneumococcal Vaccine: Pediatrics (0 to 5 Years) and At-Risk Patients (6 to 49) Years Completed 12/03/2023 COVID-19 Vaccine Completed 08/02/2024, 10/2023, 09/21/2022, Additional history exists HIB Vaccines Aged Out No longer eligi ble based on patient's age to complete this topic Hepatitis A Vaccines Aged Out No long er eligible based on patient's age to complete this topic IPV Vaccines Aged Out No longer eligi ble based on patient's age to complete this topic Meningococcal B Vaccine Aged Out No l onger eligible based on patient's age to complete this topic Meningococcal Vaccine Aged Out No tanesha nicko eligible based on patient's age to complete this topic RSV under 20 months Aged Out No longe r eligible based on patient's age to complete this topic Rotavirus Vaccines Aged Out No longer eligible based on patient's age to complete this topic Procedures Procedure Name Priority Date/Time Associated Diagnosis Comments POCT GLYCATED HEMOGLOBIN, TOTAL Routine 04/29/2025 9:18 AM EDT Type 2 diabetes mellitus with other specified complication, unspecified whether [facility]p insulin use ([facility]) POCT GLUCOSE Routine 04/29/2025 9:17 AM EDT Type 2 diabetes mellitus with other specified complication, unspecified whether internal control manager insulin use ([facility]) PROPHYLAXIS - ADULT Routine 06/10/2024 1 0:00 AM EDT INTRAORAL - COMPLETE SERIES OF RADIOGRAPHIC IMAGES Routine 06/10/2024 10:00 AM EDT PERIODIC ORAL EVALUATION - ESTABLISHED PATIENT Routine 06/10/2024 10:00 AM EDT LIPID PANEL, STANDARD Routine 11/06/2023 2:10 PM EST Hypertension, unspecified type ZZZ HISTORICAL HEPATITIS C AB W/REFL TO HCV RNA, QN, PCR Routine 02/22/2022 2:15 PM EDT HIV 1/2 ANTIGEN/ANTIBODY, FOURTH GENERATION W/RFL Routine 02/22/2022 2:15 PM EDT ALBUMIN, RANDOM URINE W/CREATININE Routine 02/22/2022 2:15 PM EDT from Last 3 Months or Most Recently Relevant to Health Maintenance Results * (ABNORMAL) POCT HGB A1C (04/29/2025 9:18 AM EDT) Hemoglobin A1C 7.0(A) 4.0 - 5.7 % QC Media Lot # [id number] Lot# Expiration Date Blood 04/29/2025 9:18 AM EDT Starla Zhao DOOR TO DOOR LEAD GENERATION POINT OF CARE TEST ENTER/EDIT ORDERABLES Final Result * POCT Glucose (04/29/2025 9:17 AM EDT) Glucose Blood, POC 192 60 - 200 mg/dL QC Media Lot # [id number] Lot# Expiration Date Blood Capillary blood specimen / Unknown 04/29/2025 9:17 AM EDT Starla Parvinivory DOOR TO DOOR LEAD GENERATION POINT OF CARE TEST ENTER/EDIT ORDERABLES Final Result * (ABNORMAL) Lipid Panel, Standard (11/06/2023 2:10 PM EST) Triglycerides 91 <150 mg/dL [facility] Comment:Desirable Triglyceri de: less than 150 mg/dLBorderline High Triglyceride 150-199 mg/dLHigh Triglyceride: 200-499 mg/dLVery High Triglyceride: greater than or equal to 5OO mg/dL Cholesterol 137 <200 mg/dL [facility] Comment:Desirable Cholestero l: less than 200 mg/dLBorderline High Cholesterol: 200-239 mg/dLHigh Cholesterol: greater than 239 mg/dL LDL Cholesterol Calculated 88 <100 mg/dL [facility] Comment:Desirable LDL: less than 100 mg/dLNear Optimal/Above Optimal LDL: 110- 129 mg/dLBorderline High LDL: 130-159 mg/dLHigh LDL: 160-189 mg/dLVery High LDL: greater than or equal to 190 mg/dL HDL Cholesterol 31(L) >40 mg/dL [facility] Comment:Desirable HDL: great er than 40 mg/dL Note: This HDL assay may give artificially low results in patients with liver disease. Blood Venous blood specimen / Unknown 11/06/2023 2:10 PM EST 11/06/2023 5:22 PM EST Akilah Badillo MD LAB BLOOD ORDERABLES Final Re sult [facility] [address] [place] [phone] * HEPATITIS C AB W/REFL TO HCV RNA, QN, PCR (02/22/2022 2:15 PM EDT) Pathologist [facility] HEPATITIS C ANTIBODY NON-REACT MICHAEL NON-REACT MICHAEL [facility] INDEX 0.02 <1.00 [facility] Comment: HCV antibody was non-reactive. There is no laboratory evidence of HCV infection. In most cases, no further action is required. However, if recent HCV exposure is suspected, a test for HCV RNA (test code 85710) is suggested. For additional information please refer to http://Clinc!.[employer]/faq/WMI86r1 (This link is being provided for informational/ educational purposes only.) 02/22/2022 2:15 PM EDT Starla HARGROVEP HISTORICAL/NON ORDERABLE LABS Final Result Performing Organization Address [facility] Phone Number [facility] [address] * (ABNORMAL) ALBUMIN, RANDOM URINE W/CREATININE (02/22/2022 2:15 PM EDT) [facility] Microalbumin Urine 112.1 See Note: mg/dL [facility] Comment: Reference Range: Reference Range Not established Verified by repeat analysis. Microalb/Creat Ratio 400(H) <30 mcg/mg creat [facility] Comment: The ADA defines abnormalities in albumin excretion as follows: Albuminuria Category Result (mcg/mg creatinine) Normal to Mildly increased <30 Moderately increased 30-299 Severely increased > OR = 300 The ADA recommends that at least two of three specimens collected within a 3-6 month period be abnormal before considering a patient to be within a diagnostic category. Creatinine, Urine 280 20 - 320 mg/dL [facility] 02/22/2022 2:15 PM EDT Starla Zhao [facility] URINE ORDERABLES Final Res ult Performing Organization Address [facility] Number [facility] [address] * HIV 1/2 ANTIGEN/ANTIBODY,FOURTH GENERATION W/RFL (02/22/2022 2:15 PM EDT) HIV-1/2 ANTIGEN AND ANTIBODIES, 4TH GENERATION W/ REFLEX NON-REACT MICHAEL NON-REACT MICHAEL [facility] Comment: HIV-1 antigen and HIV-1/HIV-2 antibodies were not detected. There is no laboratory evidence of HIV infection. PLEASE NOTE: This information has been disclosed to you from records whose confidentiality may be protected by state law. If your state requires such protection, then the state law prohibits you from making any further disclosure of the information without the specific written consent of the person to whom it pertains, or as otherwise permitted by law. A general authorization for the release of medical or other information is NOT sufficient for this purpose. For additional information please refer to http://education.SureSpeak.[employer]/faq/AUK297 (This link is being provided for informational/ educational purposes only.) The performance of this assay has not been clinically validated in patients less than 2 years old. 02/22/2022 2:15 PM EDT us Starla Zhao DOOR TO DOOR LEAD GENERATION LAB BLOOD ORDERABLES Final Res ult [facility] [address] from Last 3 Months or Most Recently Relevant to Health Maintenance Insurance [facility] C3 [place] STAND ADULT Care Teams Yard Goods Salesperson Relationship Specialty Start Date End Date Starla Zhao FNP [address] [place] [address] PCP - General Family Medicine 01/23/22
--- OUTSIDE RECORDS SUMMARY | 2025-04-29 10:34 | XMS_ITS | Encounter Summary ---
Author Organization [employer] Address [address] [place] [address] Care Team Providers Care Neuro Ophthalmologist Name Role Phone Starla Zhao Primary Care Provider [phone] Encounter Details Date Type Department Care Team ([facility] Contact Info) Description 12/10/2023 Telephone [facility] [address] [place], [place] [phone] Starla Zhao FNP [address] [place] [address] Social History Tobacco Use Types Packs/Day Years Used Date Smoking Tobacco: Never Passive Smoke Exposure: Never Smokeless Tobacco: Never Depression Answer Date Recorded Patient Health Questionnaire-9 Score 4 12/03/2023 Patient Health Questionnaire-9 Score 4 12/03/2023 Last PHQ-9: Questionnaire Data Not on file 0 12/03/2023 Housing Stability Answer Date Recorded What is your housing situation today? I have christian last 11/07/[address] you li ve. Do you have problems with any of the following? None of the above 11/07/2023 Food Insecurity Answer Date Recorded Within the past 12 months, y ou worried that your food would run out before you got money to buy more: Never True 11/07/2023 Within the past 12 months,th e food you bought just didn't last and you didn't have enough money to get more: Never True 04/2024 Transportation Answer Date Recorded In the past 12 months, has l ack of transportation kept you from medical appts, meetings, work or from getting things needed for daily living? No 11/07/2023 Utilities Answer Date Recorded In the past 12 months, has t he electric, gas, oil or water company threatened to shut off services in your home? No 11/07/2023 Depression Answer Date Recorded Patient Health Questionnaire-2 Score 1 12/03/2023 Sex and Gender Information Value Date Recorded Sex Assigned at Male 07/01/2022 10:18 AM EDT Legal Sex Male 10:18 AM EDT Gender Identity Male 07/01/2022 10:18 AM EDT Sexual Orientation Straight 07/01/2022 10 :18 AM EDT documented as of this encounter Miscellaneous Notes * Telephone Encounter - Wing Duarte RN - 12/10/2023 3:46 PM EDT Tc to pt regarding new BP cuff order. Pt verbalized understanding and agreement with plan, will pick it up tomorrow. * Telephone Encounter - MILADYS Chaves - 12/10/2023 3:40 PM EDT Called pharmacy, they said OK to just send new rx for BP kit with XL cuff. Sent. Please inform pt, thank you! * Telephone Encounter - Sara Hawkins RN - 12/10/2023 3:03 PM EDT Placed call to pharmacy regarding message below. They state a new rx needs to be sent with BP cuff size to indicate XL and if possible arm circumference. Pt is scheduled later this month for f/u and unsure if measurement can be done then? * Telephone Encounter - Surekha Monroy - 12/10/2023 2:44 PM EDT Tc from pt calling in to inform his BP cuff is to small and needs a bigger one . documented in this encounter Plan of Treatment Upcoming Encounters Date Type Department Care Team (Late st Contact Info) Description 05/30/2025 9:30 AM EDT Clinical Support [facility] [address] [place] [address] documented as of this encounter Visit Diagnoses Not on filedocumented in this encounter Additional Health Concerns Assessment Noted Time PHQ-9 Depression Total Score: 4 12/03/19 24 10:17 AM EDT documented as of this encounter Care Teams Neuro Ophthalmologist Relationship Specialty Start Date End Date Starla Zhao FNP [address] [place] [address] PCP - General Family Medicine 01/23/22 documented as of this encounter
[2025-04-29 14:35] LABS: MANUAL DIFF FLAG NO
[2025-04-29 14:46] LABS: Hematocrit 42.6 % (42.0-52.0); Hemoglobin 13.5 g/dl (14.0-18.0); Imm Gran Abs Auto 0.08 X10*3/uL (0.00-0.03); Imm Gran Pct Auto 0.9 % (0.0-0.4); Lymphocytes Absolute Auto 1.8 X10*3/uL (1.2-4.9); Mean Corpuscular HGB Conc 31.7 g/dl (31.0-36.0); Mean Corpuscular Hemoglobin 27.6 pg (27.0-33.0); Mean Corpuscular Volume 86.9 fL (80.0-98.0); NRBC Abs Auto 0.000 X10*3/uL (0.0-0.012); NRBC Pct Auto 0.0 /100WBC (0.0-0.2); Platelet Count 219 X10*3/uL (160-400); Red Blood Count 4.90 X10*6/uL (4.60-5.80); White Blood Count 9.4 X10*3/uL (4.8-10.8)
[2025-04-29 15:13] LABS: Alanine Aminotransferase 23 U/L (0-40); Albumin Level 4.1 g/dL (3.5-5.0); Alkaline Phosphatase 84 U/L (39-117); Anion Gap 11 (12-20); Aspartate Amino Transferase 30 U/L (5-37); Blood Urea Nitrogen 22 mg/dL (9-16); Calcium 8.4 mg/dL (8.4-10.2); Carbon Dioxide 22 mmol/L (22-29); Chloride 111 mmol/L (96-108); Cholesterol 70 mg/dL (<200); Estimated Glomerular Filt Rate 51; HDL Cholesterol 26 mg/dL (>40); Potassium 4.3 mmol/L (3.3-5.1); Sodium 140 mmol/L (135-145); Total Protein 7.0 g/dL (6.5-8.0); Triglycerides 60 mg/dL (<150)
[2025-04-29 15:23] LABS: Hemoglobin A1C 248.5697 umol/L; Total Hemoglobin (HGBA1C) 4588.8217 umol/L
[2025-04-29 16:14] LABS: Microalbum/Creatinine Ratio Ur 164.3 ug/mg cr (<30)
[2025-04-29 16:15] LABS: CT PCR Urine NOT DETECTED (Not Detect.); NG PCR Urine NOT DETECTED (Not Detect.)
[2025-04-30 03:56] LABS: HIV Num 1 0.05 S/CO (0.00-0.99)
[2025-05-03 19:13] LABS: HCV Log PCR <1.18 NOT DETECTED Log IU/mL (NOT DETECTED); HepC Viral Load <15 NOT DETECTED IU/mL (NOT DETECTED)
== END 2025-04-29 09:48 | disposition home or self-care (01) ==
LOC: HO.CHCLDS 09:47
PROVIDERS: Visit Provider Registered Nurse
DX: E11.69 Type 2 diabetes mellitus with other specified complication (principal)
CPT/HCPCS: 36415; 80053; 80061; 82043; 82570; 83036; 84443; 85025; 86592; 87389; 87491; 87522; 87591